=== PATIENT | female | born 1990 | race Caucasian/White ===

== ENCOUNTER 2017-12-11 12:12 | Emergency (ER) | payer MEDICAID, OTHER ==
[2017-12-11 12:19] VITALS: BP 118/75
--- NOTE | 2017-12-11 13:13 | ED Physician Documentation ---
PD HPI HEENT - Stated complaint Stated Complaint: FACE SWOLLEN/PX/CHEST TIGHTNESS - Chief complaint Chief Complaint: Heent - History obtained from History obtained from: Patient - History of Present Illness Timing - onset: How many days ago (2-3) Timing - duration: Days Timing - details: Gradual onset, Still present Location: Tooth (left upper tooth pain with swelling around base and into left maxilla) Worsens: Temperatures Associated symptoms: No: Fever, Congestion Similar symptoms before: Diagnosis (dental abscess about a month ago, Rx with abx and got better. Has appt next week with dentist, but swelling recurring again now.) Recently seen: Not recently seen Review of Systems Constitutional: denies: Fever, Chills Throat: reports: Dental pain / toothache. denies: Sore throat PD PAST MEDICAL HISTORY - Past Medical History Past Medical History: Yes Psych: Depression, Anxiety, Panic attacks - Past Surgical History Past Surgical History: Yes - Present Medications Home Medications: Ambulatory Orders Medication Instructions Recorded Confirmed Anti Anxiety Anti Depressant 1 tab PO DAILY 12/11/17 12/11/17 Chlorhexidine Gluconate [Peridex] 5 ml MM BID #118 ml 12/11/17 Clindamycin HCl [Cleocin HCl] 300 mg PO TID #20 capsule 12/11/17 Naproxen 375 mg PO BID #20 tablet 12/11/17 Tramadol HCl 50 mg PO Q6H PRN #20 tablet 12/11/17 - Allergies Allergies/Adverse Reactions: Allergies Allergy/AdvReac Type Severity Reaction Status Date / Time codeine AdvReac Itching Verified 12/11/17 12:19 - Social History Does the pt smoke?: No Smoking Status: Never smoker Does the pt drink ETOH?: Yes ETOH Use: Liquor Does the pt have substance abuse?: Yes Substance Use and Type: Marijuana - Immunizations Immunizations are current?: Yes - POLST Patient has POLST: No PD ED PE NORMAL - Vitals Vital signs reviewed: Yes - General General: Alert and oriented X 3, No acute distress, Well developed/nourished - HEENT HEENT: No: Dentition benign (many cavities, with the tooth left upper that has gum swelling, has erosion down to gumline. No drainage noted. No fluctuance but swelling and focal tenderness at base of gum. Slight swelling left maxillary part of the face. ) - Neck Neck: Supple, no meningeal sign, No adenopathy Results - Vitals Vitals: Vital Signs - 24 hr 12/11/17 12:14 Temperature 36.3 C L Heart Rate 71 Respiratory 18 Rate Blood Pressure 118/75 O2 Saturation 99 Oxygen O2 Source Room air PD MEDICAL DECISION MAKING - ED course Complexity details: considered differential, d/w patient Departure - Departure Disposition: 01 Home, Self Care Clinical Impression: Dental abscess Condition: Stable Record reviewed to determine appropriate education?: Yes Instructions: ED Abscess Dental Prescriptions: Chlorhexidine Gluconate [Peridex] 5 ml MM BID #118 ml Clindamycin HCl [Cleocin HCl] 300 mg PO TID #20 capsule Naproxen 375 mg PO BID #20 tablet Tramadol HCl 50 mg PO Q6H PRN #20 tablet PRN Reason: Pain Comments: Drink lots of fluids. Naproxen twice daily for inflammation and pain. Add Tylenol and/or tramadol if needed for pain. Clindamycin 3 times a day for the next week for the infection. Use the chlorhexidine oral rinse twice daily to cleanse around the gums and teeth. Follow-up with a dentist as planned. Discharge Date/Time: 12/11/17 13:40
[2017-12-11] MEDS ORDERED: CLINDAMYCIN 150 MG CAPSULE PO STA (13:29)
== END 2017-12-11 13:40 | disposition home or self-care (01) ==
LOC: ED 12:12
DX: K04.7 Periapical abscess without sinus (principal)
CPT/HCPCS: 99283; A9270

== ENCOUNTER 2018-01-02 10:57 | Emergency (ER) | payer MEDICAID ==
[2018-01-02] MEDS ORDERED: LIDOCAINE 1% 2 ML VIAL SUBQ ONE (12:08)
[2018-01-02] MEDS ORDERED: DEXAMETHASONE 10 MG/ML VIAL PO STA (12:08)
[2018-01-02] MEDS ORDERED: cefTRIAXone 1 GM VIAL IM STA (12:08)
--- NOTE | 2018-01-02 12:18 | ED Physician Documentation ---
History of Present Illness - Stated complaint Stated Complaint: LEFT EYE SWELLING - Chief complaint Chief Complaint: Heent - History obtained from History obtained from: Patient, Family - History of Present Illness Timing: How many days ago (2) Pain level max: 6 Pain level now: 5 Improved by: nothing Worsened by: palpation - Additonal information Additional information: Patient is a 27-year-old female who has a long history of dental problems started noticing swelling to the left cheek yesterday, worsened today. No fevers. No vomiting. Has not been on antibiotics recently. Has not been able to see her dentist yet. Denies any possibility of being . Review of Systems Constitutional: denies: Fever, Chills Nose: denies: Rhinorrhea / runny nose Throat: denies: Sore throat Cardiac: denies: Chest pain / pressure GI: denies: Nausea, Vomiting, Diarrhea Skin: denies: Rash Musculoskeletal: denies: Neck pain, Back pain PD PAST MEDICAL HISTORY - Past Medical History Past Medical History: Yes Psych: Depression, Anxiety, Panic attacks - Past Surgical History Past Surgical History: Yes - Present Medications Home Medications: Ambulatory Orders Medication Instructions Recorded Confirmed Citalopram [CeleXA] 01/02/18 Clindamycin HCl [Clindamycin 300MG 300 mg PO Q6H #40 capsule 01/02/18 CAP] Ibuprofen [Motrin] 800 mg PO Q8H PRN #30 tablet 01/02/18 - Allergies Allergies/Adverse Reactions: Allergies Allergy/AdvReac Type Severity Reaction Status Date / Time codeine AdvReac Itching Verified 12/11/17 12:19 - Social History Does the pt smoke?: No Smoking Status: Never smoker Does the pt drink ETOH?: Yes Does the pt have substance abuse?: Yes - Immunizations Immunizations are current?: Yes - POLST Patient has POLST: No PD ED PE NORMAL - Vitals Vital signs reviewed: Yes - General General: Alert and oriented X 3, No acute distress, Well developed/nourished - HEENT HEENT: Moist mucous membranes, Other (diffuse dental decay, no gingival abscess. small area of induration without fluctuance to the L cheek. eye able to fully open. no pain with EOM. bedside US with very small area 0.1cm of possible early abscess.) - Neck Neck: Supple, no meningeal sign - Cardiac Cardiac: RRR - Respiratory Respiratory: No respiratory distress, Clear bilaterally - Derm Derm: Warm and dry - Neuro Neuro: Alert and oriented X 3 Results - Vitals Vitals: Vital Signs - 24 hr 01/02/18 01/02/18 11:01 12:56 Temperature 37.4 C 37.5 C Heart Rate 87 82 Respiratory 18 18 Rate Blood Pressure 119/68 105/76 O2 Saturation 97 97 Oxygen O2 Source Room air PD MEDICAL DECISION MAKING - ED course Complexity details: considered differential, d/w patient ED course: Patient is a 27-year-old female who presents to the emergency department with what appears to be a left facial cellulitis with likely a very early dental abscess. No drainable abscess identified on bedside ultrasound. She is well- appearing, nontoxic. Afebrile. Will place on antibiotics and follow-up with her doctor. Patient counseled regarding signs and symptoms for which I believe and urgent re-evaluation would be necessary. Patient with good understanding of and agreement to plan and is comfortable going home at this time This document was made in part using voice recognition software. While efforts are made to proofread this document, sound alike and grammatical errors may occur. Given IM Rocephin here. No orbital cellulitis Departure - Departure Disposition: 01 Home, Self Care Clinical Impression: Facial cellulitis, Dental abscess Condition: Good Instructions: ED Dental Abscess Facial Cellulitis Follow-Up: Jessica Knutson MD [Primary Care Provider] - Within 1 week Prescriptions: Clindamycin HCl [Clindamycin 300MG CAP] 300 mg PO Q6H #40 capsule Ibuprofen [Motrin] 800 mg PO Q8H PRN #30 tablet PRN Reason: PAIN &/OR FEVER Comments: Take all antibiotics until gone. Return if you worsen. There is a chance that this could worsen, turned into a fully formed abscess and need to be drained, it does not need to be drained today. Discharge Date/Time: 01/02/18 12:56
[2018-01-02 12:58] VITALS: BP 105/76
== END 2018-01-02 12:56 | disposition home or self-care (01) ==
LOC: ED 10:57
DX: L03.211 Cellulitis of face (principal); K04.7 Periapical abscess without sinus
CPT/HCPCS: 99283

== ENCOUNTER 2018-02-11 14:07 | Emergency (ER) | payer MEDICAID ==
--- NOTE | 2018-02-11 14:44 | ED Physician Documentation ---
PD HPI DYSPNEA - Stated complaint Stated Complaint: SOA,HX OF BLOOD CLOTS - Chief complaint Chief Complaint: General - History obtained from History obtained from: Patient, Family - History of Present Illness Timing - onset: Enter time (1200), Today Timing - onset during: Light activity Timing - duration: Hours Timing - details: Abrupt onset, Still present Inciting event(s): Other (pt has palpable cord on left in popliteal) Improved by: Rest Worsened by: Exertion Associated symptoms: Chest pain / discomfort, Unilateral edema. No: Fever, Cough, Hemoptysis, Wheezing, Palpitations, Diaphoresis, Bilateral edema Similar symptoms before: Has not had sx before Recently seen: Clinic - Additional information Additional information: 27-year-old female has had some palpable veins in the left popliteal area for the past year. She is sometimes felt these small lumps that have resolved. She has active lumps now in her veins and today when she was standing she developed a sudden substernal pain and some shortness of breath. She feels somewhat better now and is concerned about pulmonary embolism and DVT. Review of Systems Constitutional: denies: Fever Eyes: denies: Decreased vision Ears: denies: Ear pain Nose: denies: Congestion Throat: denies: Sore throat Cardiac: reports: Chest pain / pressure, Pedal edema, Calf pain Respiratory: reports: Dyspnea. denies: Cough, Wheezing GI: denies: Abdominal Pain, Nausea, Vomiting : denies: Dysuria, Frequency Skin: denies: Rash Musculoskeletal: denies: Neck pain, Back pain, Extremity pain Neurologic: denies: Generalized weakness, Focal weakness, Numbness PD PAST MEDICAL HISTORY - Past Medical History Past Medical History: Yes Psych: Depression, Anxiety, Panic attacks - Past Surgical History Past Surgical History: Yes - Present Medications Home Medications: Ambulatory Orders Medication Instructions Recorded Confirmed Citalopram [CeleXA] 01/02/18 Clindamycin HCl [Clindamycin 300MG 300 mg PO Q6H #40 capsule 01/02/18 CAP] Ibuprofen [Motrin] 800 mg PO Q8H PRN #30 tablet 01/02/18 - Allergies Allergies/Adverse Reactions: Allergies Allergy/AdvReac Type Severity Reaction Status Date / Time codeine AdvReac Itching Verified 12/11/17 12:19 - Social History Does the pt smoke?: No Smoking Status: Never smoker Does the pt drink ETOH?: Yes Does the pt have substance abuse?: Yes - Immunizations Immunizations are current?: Yes - POLST Patient has POLST: No PD ED PE NORMAL - Vitals Vital signs reviewed: Yes (normal ) - General General: Alert and oriented X 3, No acute distress, Well developed/nourished - HEENT HEENT: Atraumatic, PERRL, EOMI - Neck Neck: Supple, no meningeal sign, No bony TTP - Cardiac Cardiac: RRR, No murmur - Respiratory Respiratory: No respiratory distress, Clear bilaterally - Abdomen Abdomen: Soft, Non tender - Back Back: No CVA TTP, No spinal TTP - Derm Derm: Normal color, Warm and dry, No rash - Extremities Extremities: No deformity, Other (The left calf is larger than the right and there are palpalbe "beads" in the popliteal area that are in a superficial vein. ) - Neuro Neuro: Alert and oriented X 3, No motor deficit, No sensory deficit, Normal speech Eye Opening: Spontaneous Motor: Obeys Commands Verbal: Oriented GCS Score: 15 - Psych Psych: Normal mood, Normal affect Results - Vitals Vitals: Vital Signs - 24 hr 02/11/18 14:12 Temperature 36.7 C Heart Rate 75 Respiratory 18 Rate Blood Pressure 142/81 H O2 Saturation 98 Oxygen O2 Source Room air - EKG (time done) 1416 Rate: Rate (enter#) (74) Rhythm: NSR Ischemia: Normal ST segments Compare to prior EKG: Changed from prior EKG (SPT 01-19-2018 the previously seen early repolarization is no longer seen. ) Computer interpretation: Agree with computer - Labs Labs: Laboratory Tests 02/11/18 02/11/18 02/11/18 14:48 14:48 14:48 WBC 9.0 RBC 4.46 Hgb 12.1 Hct 35.8 L MCV 80.4 L MCH 27.1 MCHC 33.7 RDW 13.3 Plt Count 224 MPV 8.1 Neut # 5.3 Lymph # 2.6 [place] # 0.6 Eos # 0.4 Baso # 0.0 Absolute Nucleated RBC 0.00 Nucleated RBC % 0.0 D-Dimer < 200.0 L Sodium 135 Potassium 3.6 Chloride 102 Carbon Dioxide 26 Anion Gap 7.0 BUN 15 Creatinine 0.7 Estimated GFR (MDRD) 100 Glucose 93 Calcium 8.9 Total Bilirubin 0.8 AST 15 ALT 18 Alkaline Phosphatase 59 Troponin I Total Protein 7.4 Albumin 4.0 Globulin 3.4 Albumin/Globulin Ratio 1.2 Lipase 13 L Urine Color Urine Clarity Urine pH Ur Specific [place] Urine Protein Urine Glucose (UA) Urine Ketones Urine Occult Blood Urine Nitrite Urine Bilirubin Urine Urobilinogen Ur Leukocyte Esterase Ur Microscopic Review Urine Culture Comments Urine HCG, Qual 02/11/18 02/11/18 14:48 14:55 WBC RBC Hgb Hct MCV MCH MCHC RDW Plt Count MPV Neut # Lymph # [place] # Eos # Baso # Absolute Nucleated RBC Nucleated RBC % D-Dimer Sodium Potassium Chloride Carbon Dioxide Anion Gap BUN Creatinine Estimated GFR (MDRD) Glucose Calcium Total Bilirubin AST ALT Alkaline Phosphatase Troponin I < 0.04 Total Protein Albumin Globulin Albumin/Globulin Ratio Lipase Urine Color YELLOW Urine Clarity CLEAR Urine pH 6.0 Ur Specific [place] 1.020 Urine Protein NEGATIVE Urine Glucose (UA) NEGATIVE Urine Ketones NEGATIVE Urine Occult Blood NEGATIVE Urine Nitrite NEGATIVE Urine Bilirubin NEGATIVE Urine Urobilinogen 0.2 (NORMAL) Ur Leukocyte Esterase NEGATIVE Ur Microscopic Review NOT INDICATED Urine Culture Comments NOT INDICATED Urine HCG, Qual NEGATIVE - Rads (name of study) duplex exam Radiology: Prelim report reviewed (impression: No DVT), EMP read indepedently, See rad report CT chest angiogram Radiology: Prelim report reviewed (Impression: 1. Suboptimal bolus timing with insufficient opacification of the pulmonary arteries for evaluation of some segmental emboli. No large saddle embolus is seen. No acute pulmonary process. No cardiac enlargement, coronary artery disease or pathologic adenopathy.), EMP read indepedently, See rad report PD MEDICAL DECISION MAKING - ED course Complexity details: reviewed old records, reviewed results, re-evaluated patient , considered differential, d/w patient, d/w family ED course: No symptoms in the ED with negative u/s for DVT and negative pulmonary angiogram. She is diagnosed with chest pain of uncertain etiology. Departure - Departure Disposition: 01 Home, Self Care Clinical Impression: Atypical chest pain Condition: Stable Instructions: ED Chest Pain Atypical Unkn Cause Follow-Up: Jessica Knutson MD [Primary Care Provider] -
[2018-02-11 15:01] LABS: BASOPHILS % (AUTO) 0.4 %; EOSINOPHILS # (AUTO) 0.4 10^3/uL (0.0-0.7); EOSINOPHILS % (AUTO) 4.4 %; HGB - HEMOGLOBIN 12.1 g/dL (12.0-16.0); LYMPHOCYTES # (AUTO) 2.6 10^3/uL (1.5-3.5); LYMPHOCYTES % (AUTO) 29.1 %; MEAN CORPUSCULAR HEMOGLOBIN 27.1 pg (27.0-31.0); MEAN CORPUSCULAR HGB CONC 33.7 g/dL (32.0-36.0); MEAN CORPUSCULAR VOLUME 80.4 fL (81.0-99.0); MEAN PLATELET VOLUME 8.1 fL (7.9-10.8); MONOCYTES # (AUTO) 0.6 10^3/uL (0.0-1.0); NEUTROPHILS # (AUTO) 5.3 10^3/uL (1.5-6.6); NEUTROPHILS % (AUTO) 59.1 %; PLT - PLATELET COUNT 224 10^3/uL (130-450); RED BLOOD COUNT 4.46 10^6/uL (4.20-5.40); RED CELL DISTRIBUTION WIDTH 13.3 % (12.0-15.0)
[2018-02-11 15:19] LABS: ALBUMIN/GLOBULIN RATIO 1.2 (1.0-2.2); BILIRUBIN,TOTAL 0.8 mg/dL (0.2-1.0); CALCIUM 8.9 mg/dL (8.5-10.3); CREATININE 0.7 mg/dL (0.4-1.0); TOTAL PROTEIN 7.4 g/dL (6.7-8.2)
[2018-02-11 15:24] LABS: BILIRUBIN,URINE NEGATIVE (NEGATIVE); GLUCOSE, URINE (UA) NEGATIVE (NEGATIVE); KETONES,URINE (UA) NEGATIVE (NEGATIVE); LEUKOCYTE ESTERASE, URINE NEGATIVE (NEGATIVE); NITRITE,URINE NEGATIVE (NEGATIVE); OCCULT BLOOD,URINE NEGATIVE (NEGATIVE); PROTEIN,URINE NEGATIVE (NEGATIVE); UROBILINOGEN,URINE 0.2 (NORMAL) E.U./dL (NORMAL)
[2018-02-11 15:26] LABS: CLARITY,URINE CLEAR (CLEAR); HCG UR QUAL NEGATIVE
--- NOTE | 2018-02-11 16:06 | Ultrasound Report ---
LEFT LEG VENOUS DUPLEX: 02/11/2018 CLINICAL INDICATION: Palpable abnormality left popliteal. TECHNIQUE: Real-time sonographic vascular imaging was performed by the front worker through the left lower extremity utilizing both color flow and Doppler spectral analysis. Multiple chemical sales representative static images were saved for review. FINDINGS: A left lower extremity venous sonogram is performed revealing the common femoral, superficial femoral, profunda femoris, and popliteal veins to be adequately visualized without intraluminal defects. There is normal venous compression, augmentation, phasicity, and spontaneity of venous flow. In the calf, the visualized more cephalad portions of posterior tibial and peroneal veins are grossly compressible, without filling defects. IMPRESSION: NO EVIDENCE OF DEEP VENOUS THROMBOSIS. TD: 02/11/2018 16:04
[2018-02-11] MEDS ORDERED: IOPAMIDOL-300 100 ML VIAL ONE (16:29)
[2018-02-11] MEDS ORDERED: IOPAMIDOL-300 100 ML VIAL IVP ONE (17:08)
--- NOTE | 2018-02-11 17:46 | CT Preliminary Report ---
Exam: CT CHEST ANGIO (PE) IMPRESSION: 1. Suboptimal bolus timing with insufficient opacification of the pulmonary arteries for evaluation o f segmental and subsegmental emboli. No large saddle embolus is seen. 2. No acute pulmonary process. 3. No cardiac enlargement, coronary artery disease or pathologic adenopathy. [facility] SITE ID: [id number]
[2018-02-11 18:00] VITALS: BP 118/76
--- NOTE | 2018-02-11 18:45 | CT Report ---
EXAM: CT ANGIOGRAM CHEST EXAM DATE: 02/11/2018 05:09 PM. CLINICAL HISTORY: Chest pain and shortness of breath. COMPARISON: None. TECHNIQUE: Routine helical imaging was performed through the chest in the pulmonary arterial phase. I V Contrast: 80 cc of Isovue 300. Reconstructions: Coronal 3-D MIP reconstructions.Sagittal and mason l. In accordance with CT protocol optimization, one or more of the following dose reduction techniques w ere utilized for this exam: automated exposure control, adjustment of mA and/or KV based on patient s ize, or use of iterative reconstructive technique. FINDINGS: Pulmonary Arteries: Diagnostic quality: Suboptimal through the segmental arteries. No evidence for acute or chronic centr al pulmonary emboli. Evaluation of the segmental and subsegmental pulmonary arteries is limited due t o suboptimal bolus timing. RV/LV is within normal limits. There is no interventricular septal bowing. There is no reflux of cont rast material in the IVC. Lungs/Pleura: No consolidation, nodules, or edema. No effusions or pneumothorax. Mediastinum: Normal. No cardiac enlargement or adenopathy. Thoracic Aorta: Incidental small hiatal hernia noted. Upper Abdomen: Unremarkable. Other: None. IMPRESSION: 1. Suboptimal bolus timing with insufficient opacification of the pulmonary arteries for the evaluati on of segmental and subsegmental emboli. No large saddle embolus is seen. 2. No acute pulmonary process. 3. No cardiac enlargement, coronary artery disease or pathologic adenopathy. [facility] Referring Provider Line: [phone] SITE ID: [id number]
== END 2018-02-11 18:03 | disposition home or self-care (01) ==
LOC: ED 14:07
DX: R07.89 Other chest pain (principal)
CPT/HCPCS: 36415; 71275; 80053; 81003; 81025; 83690; 84484; 85025; 85379; 93005; 93971; 99283; 99284; Q9967; 81001; 87086

== ENCOUNTER 2020-02-14 17:04 | Outpatient (CLI) | payer SELFPAY | END 2020-02-14 17:05 | disposition home or self-care (01) | LOC: COV 17:04 | PROVIDERS: ATTEND Family Medicine | DX: R05 Cough (principal); Z20.828 Contact with and (suspected) exposure to other viral communicable diseases ==